=== PATIENT | female | born 1950 | race Caucasian/White ===

== ENCOUNTER 2023-08-27 13:09 | Emergency (ER) | payer MEDICARE, OTHER, SELFPAY ==
[2023-08-27 13:17] VITALS: BP 190/102
[2023-08-27 13:47] LABS: % Basophils 0.2 % (0-2); % Eosinophils 0.7 % (0-6); % Immature Granulocytes 0.2 % (0-0.5); % Lymphocytes 33.1 % (20.5-51.1); % Monocytes 8.6 % (1.7-9.3); % Neutrophils 57.2 % (42.2-75.2); Absolute Monocytes 0.5 10^3/uL (0.1-0.6); Absolute Neutrophils 3.4 10^3/uL (1.4-6.5); Hematocrit 42.1 % (37.0-47.0); Hemoglobin 14.2 g/dL (12.0-16.0); Mean Corp Hgb Conc. 33.7 g/dL (33.0-37.0); Mean Corpuscular Hgb 29.8 pg (27.0-31.0); Mean Corpuscular Volume 88.3 fL (81.0-99.0); Mean Platelet Volume 10.4 fL (7.4-10.4); Nucleated Red Blood Cells % 0 %; Platelet Count 231 10^3/uL (130-400); Red Blood Cell Count 4.77 10^6/uL (4.20-5.40); Red Cell Dist. Width 13.1 % (11.5-14.5)
[2023-08-27 14:00] LABS: ALT (SGPT) 16 U/L (0-35); AST (SGOT) 25 U/L (14-36); Albumin 4.6 g/dl (3.5-5.0); Alkaline Phosphatase 63 U/L (38-126); Blood Urea Nitrogen 14 mg/dl (7-17); Calcium 10.2 mg/dl (8.4-10.2); Carbon Dioxide 27 mmol/L (22-30); Chloride 105 mmol/L (98-107); Glucose 121 mg/dl (70-99); Potassium 3.7 mmol/L (3.5-5.1); Sodium 139 mmol/L (135-145); Total Bilirubin 0.8 mg/dl (0.2-1.3); Total Protein 7.1 g/dl (6.3-8.2); eGFR > 60.00
--- NOTE | 2023-08-27 16:35 | ED.GENMED ---
History of Present Illness
General
Chief Complaint: Visual Problem
Source: patient
Time Seen by Provider: 08/27/23 16:03
Nursing documentation reviewed up to this point in time: agreed with
Travel History
Have you had any contact with someone who has COVID-19?: No
Do you have any symptoms of coronavirus? Fever > 100 degrees, chills, cough, shortness of breath, sore throat, loss of taste or smell, muscle aches, or headache?: No
History of Present Illness
History of Present Illness:
Patient is a 73-year-old female with history of stroke in 2020 presents to the ER for evaluation. Last night around 4 PM she was looking up and taking off close when she developed what she describes as kaleidoscope vision and saw all of these
bright colors in both of her eyes and then finally only in her left eye. This lasted about 15 to 20 minutes and resolved on its own. She did have a mild headache. She denied any upper or lower extremity numbness tingling or weakness with episode.
Today she went to call ophthalmology and they recommended she come here to the ER. She is asymptomatic today.
Past History
Past History
ED Past Medical History: CVA and Other (MS in remission for 21 years.)
Social History
Tobacco: Non-smoker
Alcohol: None
Personal:
Living: with family
Review of Systems
Review of Systems
Allergies reviewed?: Yes
All Other Systems: ROS reviewed and negative except as documented in HPI and ROS
Constitutional: Reports no symptoms
EENT: Reports other (Had kaleidoscope vision in bilateral eyes yesterday 4 PM then went to left eye associated with headache and resolved within 15 to 20 minutes)
Respiratory: Reports no symptoms
Cardiac: Reports no symptoms
ABD/GI: Reports no symptoms; Denies abdominal pain, nausea or vomiting
Musculoskeletal: Reports no symptoms
Skin: Reports no symptoms
Neurological: Reports headache (Resolved yesterday)
Hematologic/Lymphatic: Reports no symptoms
Psychiatric: Reports no symptoms
Phy Exam
General Physical Exam
General Presentation: no apparent distress
General age: appears stated age
General Skin: warm and dry
General Habitus: normal
General Mental: alert
General Hydration: appears well hydrated
Eye Exam
Eye Exam: PERRL and EOMI
Eye Exam General: PERRL: bilateral and EOM intact: bilateral
Pupil Exam: Bilateral: round and reactive
Cardiovascular Exam
Cardiovascular Exam: regular rate/rhythm, no murmur and normal peripheral pulses
Pulmonary Exam
Pulmonary Exam: lungs clear and no respiratory distress
Neurological Exam
Neurological Exam: alert, oriented x3, no motor deficits and no sensory deficits
NIH Stroke Score
Level of Consciousness: 0 - Alert
LOC questions: 0-Answers both correctly
LOC Commands: 0-Performs both correctly
Best Gaze: 0-Normal
Visual Young: 0=Normal, no visual loss
Facial palsy: 0=Normal, symmetrical
Motor - Right Arm: 0=No drift 10 seconds
Motor - Left Arm: 0=No drift 10 seconds
Motor - Right Le-No drift 5 seconds
Motor - Left Le-No drift 5 seconds
Limb Ataxia: 0-Absent
Sensation: 0-Normal
Best Language: 0-No aphasia
Dysarthria: 0-Normal
Extinction and Inattention: 0-No abnormality
Total Score:: 0
Ratna Coma Scale
Eye Opening: Spontaneous
Verbal Response: Oriented
Motor Response: Obeys Commands
GCS Total Score: 15
Cerebellar
Cerebellar Function: normal finger to nose
Musculoskeletal Exam
Musculoskeletal Exam: full ROM
Skin Exam
Skin Exam: normal color and warm/dry
Psychiatric Exam
Psychiatric Exam: normal mood/affect
Course
Orders/Labs/Results
Orders:
Orders
08/27/23 13:36
CMP [Comprehensive Metabolic Panel] Urgent
Complete Blood Count/With Diff Urgent
08/27/23 17:05
CT Head W/o Iv Contrast Urgent
Comment:
Reason For Exam: visual changes
Abnormal Lab Results
08/27/23
13:36
Glucose 121 H mg/dl
(70-99)
08/27/23 13:36
08/27/23 13:36
Vital Signs
Initial and Last Documented VS:
Initial Vital Signs
Temp Pulse Resp BP Pulse Ox
98.0 F 88 18 190/102 98
08/27/23 13:17 08/27/23 13:17 08/27/23 13:17 08/27/23 13:17 08/27/23 13:17
Last Documented Vital Signs
Temp Pulse Resp BP Pulse Ox
98.0 F 56 18 159/84 99
08/27/23 13:17 08/27/23 18:31 08/27/23 18:31 08/27/23 18:31 08/27/23 18:31
Industrial Psychology Teacher consulted with Physician
Industrial Psychology Teacher consulted with physician?: Yes
Name of Physician Consulted: Naheed
MDM/Problems Addressed
MDM/Problems Addressed:
Patient is a 73-year-old female who presented with an episode of kaleidoscope vision last night with both eyes and then went to 1 eye. It lasted 1520 mention a mild headache with it and symptoms resolved. She has been asymptomatic today but wanted
to follow-up with ophthalmology and they recommended she come here. She is completely asymptomatic today no headache no visual disturbance no complaints of upper or lower extremity numbness Yunior weakness. She is been asymptomatic with a normal
neurologic exam. Case reviewed with neurology does feel this is a migraine. CAT scan done and negative. Patient remained asymptomatic will DC home.
Chronic conditions affecting care:
previous cva
*Radiology
Radiology exam reviewed: radiology read reviewed
*Pulse Oximetry
Patient hypoxic: no
*Critical Care Note
Total Time (30-74mins, 75-104mins- exclusive of procedures): Not Applicable
Patient Management
Discussion with other providers: Lace Roller Operator (neuro DR Martinez )
ED Attending Note
-
Portions of this chart may have been created with voice recognition software.� Occasional wrong word or��sound alike� substitutions may have occurred due to the inherent limitations of voice recognition software.
Discharge Plan
Departure
Patient Disposition: Home (Routine Discharge)
Date of Disposition: 08/27/23
Time of Disposition: 20:52
Patient with high blood pressure during this ER visit?: Yes
Covid-19: Not Applicable
Discharge Problem:
Migraine
Instructions: Migraines (DC), Headache, Adult (DC), BLOOD PRESSURE
Prescriptions:
No Action
atorvastatin 40 MG tablet
40 mg PO QPM Qty: 90 0RF
acetaminophen 325 MG tablet
650 mg PO Q4HPRN PRN (Reason: moderate or severe pain) 0RF
acetaminophen 325 MG tablet
325 mg PO Q4HPRN PRN (Reason: mild pain) 0RF
cyanocobalamin (vitamin B-12) 1,000 MCG tablet
2,500 mcg PO DAILY 0RF
clopidogrel 75 MG tablet
75 mg PO DAILY Qty: 90 0RF
pantoprazole 40 MG tablet,delayed release (DR/EC)
40 mg PO DAILY Qty: 90 0RF
cholecalciferol (vitamin D3) 1,000 UNITS tablet
1,000 units PO DAILY 0RF
Lactobac 2-Bifido 1-S. therm [High Potency Probiotic] 1 CAP capsule
1 cap PO DAILY 0RF
vitamin E (dl, acetate) 400 UNITS capsule
400 units PO DAILY 0RF
multivitamin with folic acid [Tab-A-Maryellen] 1 TABLET tablet
1 tab PO DAILY 0RF
Referrals:
Shaan Martinez MD [Active] -
Clay Salinas [Family Provider] -
Activity Restrictions/Additional Instructions:
Follow-up with family doctor in the several days and neurology if needed. Return if any worsening of symptoms
Interventions
Interventions:
*Risk Screen - Suicide Last Done: 08/27/23 18:32
*General Assessment Last Done: 08/27/23 18:32
*Neglect/Abuse Screening Last Done: 08/27/23 18:32
ED- Fall Risk Assessment Last Done: 08/27/23 17:18
*ED COVID-19 Vaccine History Last Done: 08/27/23 13:17
ED- Neurological Assessment Last Done: 08/27/23 17:18
ED-EENT Assessment Last Done: 08/27/23 18:32
ED Swallowing Screen Last Done: 08/27/23 18:31
Discharge Date and Time
Print Language: GREEK
[2023-08-27 17:18] VITALS: BP 182/93
[2023-08-27 18:31] VITALS: BP 159/84
[2023-08-27 21:23] VITALS: BP 161/85
== END 2023-08-27 21:23 | disposition home or self-care (01) ==
LOC: EMR 13:09
PROVIDERS: Emergency Medicine; EMERGENCY PHYSICIAN Emergency Medicine; FAMILY PHYSICIAN Family Medicine
DX: G43.909 Migraine, unspecified, not intractable, without status migrainosus (principal); R03.0 Elevated blood-pressure reading, without diagnosis of hypertension; Z86.73 Personal history of transient ischemic attack (TIA), and cerebral infarction without residual deficits
CPT/HCPCS: 99284; 70450; 80053; 85025

== ENCOUNTER → 2023-12-31 12:11 | Outpatient (REF) | payer MEDICARE, OTHER, SELFPAY | LOC: HWRAD 12:11 | PROVIDERS: ATTENDING PHYSICIAN Family Medicine | DX: Z78.0 Asymptomatic menopausal state (principal); Z12.39 Encounter for other screening for malignant neoplasm of breast; M85.80 Other specified disorders of bone density and structure, unspecified site | CPT/HCPCS: 77063; 77067; 77080 ==

== ENCOUNTER → 2024-12-06 09:31 | Outpatient (REF) | payer MEDICARE, OTHER, SELFPAY | LOC: HWRAD 09:31 | PROVIDERS: ATTENDING PHYSICIAN Family Medicine | DX: M51.26 Other intervertebral disc displacement, lumbar region (principal) | CPT/HCPCS: 72131; 72192 ==

== ENCOUNTER 2025-01-29 12:09 | Inpatient (IN) | payer MEDICARE, OTHER, SELFPAY ==
[2025-01-29] VITALS (30 sets, daily range): BP systolic 100–200; BP diastolic 47–124; BMI 26.4
[2025-01-29 04:47] LABS: Hematocrit 40.9 % (37.0-47.0); Hemoglobin 13.8 g/dL (12.0-16.0); Mean Corp Hgb Conc. 33.7 g/dL (33.0-37.0); Mean Corpuscular Volume 86.3 fL (81.0-99.0); Nucleated Red Blood Cells % 0 %; Platelet Count 239 10^3/uL (130-400); Red Cell Dist. Width 13.2 % (11.5-14.5)
[2025-01-29 05:08] LABS: ALT (SGPT) 23 U/L (0-35); AST (SGOT) 26 U/L (14-36); Albumin 4.4 g/dl (3.5-5.0); Alkaline Phosphatase 68 U/L (38-126); Blood Urea Nitrogen 14 mg/dl (7-17); Calcium 9.6 mg/dl (8.4-10.2); Carbon Dioxide 31 mmol/L (22-30); Chloride 108 mmol/L (98-107); Glucose 108 mg/dl (70-99); Potassium 3.5 mmol/L (3.5-5.1); Sodium 142 mmol/L (135-145); Total Protein 7.0 g/dl (6.3-8.2); eGFR > 60.00
--- NOTE | 2025-01-29 07:55 | ED.GENMED ---
History of Present Illness
<Hasmukh Mayorga PA-C - Last Filed: 01/29/25 11:08>
General
Chief Complaint: Numbness
Source: patient
Time Seen by Provider: 01/29/25 07:34
History of Present Illness
History of Present Illness:
75-year-old female with past medical history of previous CVA in 2020, a reported history of MS in the past however she notes that on subsequent MRIs her MS lesions has since resolved presenting to the emergency department for evaluation of full
left-sided body numbness including the face, left upper extremity and left lower extremity since 10 PM last night, patient thought that this may have been related to the chronic paresthesias she feels in the lower part of her abdomen so just decided
to go to sleep, woke up at 1 AM needing to go to the bathroom and upon getting up felt as if she were stumbling/not able to walk normally because of the left lower extremity paresthesia which she states is very abnormal for her and why they decided
to come to the emerged permit. Patient states that she still has the full left-sided paresthesia. No other symptoms associated including headache, chest pain or shortness of breath, fevers or infectious symptoms, neck pain or stiffness or any
other concerns. Patient does not take any antiplatelet or anticoagulant medications.
Past History
<Hasmukh Mayorga PA-C - Last Filed: 01/29/25 11:08>
Past History
ED Past Medical History: CVA and Other (MS in remission for 21 years.)
ED Past Surgical History: Gynecological, Orthopedic and Tonsilectomy
Social History
Tobacco: Non-smoker
Alcohol: None
Drug: None
Personal:
Living: with family
Review of Systems
<Hasmukh Mayorga PA-C - Last Filed: 01/29/25 11:08>
Review of Systems
All Other Systems: ROS reviewed and negative except as documented in HPI and ROS
Phy Exam
<Hasmukh Mayorga PA-C - Last Filed: 01/29/25 11:08>
Physical Exam
Physical Exam:
GENERAL: Alert , in no apparent distress
HEAD: Normocephalic atraumatic
EYE: pupils equal and reactive, EOMI, PERRL
NECK: Supple
ENT: o/p clr, mmm.
CARDIAC: Regular rate and rhythm, no murmur .
LUNGS: Clear breath sounds bilaterally, no acute respiratory distress, no wheezes/rales/rhonchi
ABDOMEN: Soft, without focal tenderness, no r/g, no cvat
NEUROLOGICAL: Alert and oriented, HUNT x 4, no ataxia, no dysarthria/aphasia, subjective sensory deficits to LUE/LLE but has FROM with no drift
SKIN: Warm and dry, skin intact.
MUSCULOSKELETAL: well perfused.
PSYCH: Normal and appropriate interaction.
Scores
<Hasmukh Mayorga PA-C - Last Filed: 01/29/25 11:08>
NIH Stroke Score
Level of Consciousness: 0 - Alert
LOC Questions: 0-Answers both correctly
LOC Commands: 0-Performs both correctly
Best Horizontal Gaze: 0-Normal
Visual Young: 0=Normal, no visual loss
Facial Palsy: 0=Normal, symmetrical
Motor - Right Arm: 0=No drift 10 seconds
Motor - Left Arm: 0=No drift 10 seconds
Motor - Right Le-No drift 5 seconds
Motor - Left Le-No drift 5 seconds
Limb Ataxia: 0-Absent
Sensation: 1-Mild loss
Best Language: 0-No aphasia
Dysarthria: 0-Normal
Extinction and Inattention: 0-No abnormality
NIH Total Score:: 1
[id number] Score for Afib Stroke Risk
Age in Years (65=0, 65-74=1, >/=75=2): 65-74
Sex (Female=+1): Female
Congestive Heart Failure History (Yes=+1): No
Hypertension History (Yes=+1): No
Stroke/TIA/Thromboembolism History (Yes=+2): Yes
Vascular Disease History (Yes=+1): No
Diabetes Mellitus (Yes=+1): No
Score: 4
Anticoagulation Recommendations: Recommend anticoagulation (as validated in nonvalvular fib)
<Uzair Thompson DO - Last Filed: 01/29/25 08:38>
NIH Stroke Score
NIH Total Score:: 1
[id number] Score for Afib Stroke Risk
Score: 4
Anticoagulation Recommendations: Recommend anticoagulation (as validated in nonvalvular fib)
Course
<Hasmukh Mayorga PA-C - Last Filed: 01/29/25 11:08>
Orders/Labs/Results
Orders:
Orders
01/29/25 04:21
EKG [Electrocardiogram (*1)] Urgent
Reason for Study: Fatigue / Weakness
Other Reason for Exam: left arm numbness.
01/29/25 04:23
EKG- Treatment ONCE
01/29/25 04:35
CMP [Comprehensive Metabolic Panel] Urgent
Complete Blood Count/With Diff Urgent
01/29/25 07:48
CT Head & Neck Angio W/wo IV Urgent
Comment:
Reason For Exam: left sided numbness, hx CVA
01/29/25 07:49
CT Head W/o Iv Contrast Urgent
Comment:
Reason For Exam: left sided numbness, hx CVA
01/29/25 07:57
Aspirin 325 mg PO NOW STA
Clopidogrel Bisulfate [Plavix] 300 mg PO NOW STA
01/29/25 08:04
Diphenhydramine [Benadryl] 50 mg IV NOW STA
Hydrocortisone Sod Succinate [Solu-Cortef] 100 mg IV NOW STA
01/29/25 08:15
Electrocardiogram (*1) Urgent
Reason for Study: Atrial Fibrillation
EKG- Treatment ONCE
01/29/25 08:18
Diltiazem HCl [Cardizem] 10 mg IV NOW STA
01/29/25 08:30
Diltiazem 125 mg/125 ml Nss [Cardizem] 125 mg in 125 ml IV PER PROTOCOL
Initial dose in mg/hr, then titrate:: 5
Titrate to keep:: Heart rate 80-100 bpm
Titrate by mg/hr:: 5 mg/hr
Frequency of titrations (minutes):: 15
Maximum dose in mg/hr:: 15
01/29/25 08:50
Electrocardiogram (*1) Urgent
Reason for Study: Abnormal EKG
01/29/25 08:51
EKG- Treatment ONCE
01/29/25 09:11
MR Brain Without Contrast Routine
Comment:
Reason For Exam: stroke
OK for patient to be off Cardiac Monitoring for MRI: No
Recent pill cam endoscopy?: No
Abnormal Lab Results
01/29/25
04:35
MPV 10.5 H fL
(7.4-10.4)
Chloride 108 H mmol/L
(98-107)
Carbon Dioxide 31 H mmol/L
(22-30)
Glucose 108 H mg/dl
(70-99)
01/29/25 04:35
01/29/25 04:35
Vital Signs
Initial and Last Documented VS:
Initial Vital Signs
Temp Pulse Resp BP Pulse Ox
97.7 F 80 20 200/100 99
01/29/25 02:23 01/29/25 02:23 01/29/25 02:23 01/29/25 02:23 01/29/25 02:23
Last Documented Vital Signs
Temp Pulse Resp BP Pulse Ox
97.7 F 61 15 135/71 98
01/29/25 02:29 01/29/25 10:45 01/29/25 10:45 01/29/25 10:38 01/29/25 10:45
<Uzair Thompson, DO - Last Filed: 01/29/25 08:38>
Orders/Labs/Results
Orders:
Orders
01/29/25 04:21
EKG [Electrocardiogram (*1)] Urgent
Reason for Study: Fatigue / Weakness
Other Reason for Exam: left arm numbness.
01/29/25 04:23
EKG- Treatment ONCE
01/29/25 04:35
CMP [Comprehensive Metabolic Panel] Urgent
Complete Blood Count/With Diff Urgent
01/29/25 07:48
CT Head & Neck Angio W/wo IV Urgent
Comment:
Reason For Exam: left sided numbness, hx CVA
01/29/25 07:49
CT Head W/o Iv Contrast Urgent
Comment:
Reason For Exam: left sided numbness, hx CVA
01/29/25 07:57
Aspirin 325 mg PO NOW STA
Clopidogrel Bisulfate [Plavix] 300 mg PO NOW STA
01/29/25 08:04
Diphenhydramine [Benadryl] 50 mg IV NOW STA
Hydrocortisone Sod Succinate [Solu-Cortef] 100 mg IV NOW STA
01/29/25 08:15
Electrocardiogram (*1) Urgent
Reason for Study: Atrial Fibrillation
EKG- Treatment ONCE
01/29/25 08:18
Diltiazem HCl [Cardizem] 10 mg IV NOW STA
01/29/25 08:30
Diltiazem 125 mg/125 ml Nss [Cardizem] 125 mg in 125 ml IV PER PROTOCOL
Initial dose in mg/hr, then titrate:: 5
Titrate to keep:: Heart rate 80-100 bpm
Titrate by mg/hr:: 5 mg/hr
Frequency of titrations (minutes):: 15
Maximum dose in mg/hr:: 15
01/29/25 08:50
Electrocardiogram (*1) Urgent
Reason for Study: Abnormal EKG
01/29/25 08:51
EKG- Treatment ONCE
01/29/25 09:11
MR Brain Without Contrast Routine
Comment:
Reason For Exam: stroke
OK for patient to be off Cardiac Monitoring for MRI: No
Recent pill cam endoscopy?: No
Abnormal Lab Results
01/29/25
04:35
MPV 10.5 H fL
(7.4-10.4)
Chloride 108 H mmol/L
(98-107)
Carbon Dioxide 31 H mmol/L
(22-30)
Glucose 108 H mg/dl
(70-99)
01/29/25 04:35
01/29/25 04:35
Vital Signs
Initial and Last Documented VS:
Initial Vital Signs
Temp Pulse Resp BP Pulse Ox
97.7 F 80 20 200/100 99
01/29/25 02:23 01/29/25 02:23 01/29/25 02:23 01/29/25 02:23 01/29/25 02:23
Last Documented Vital Signs
Temp Pulse Resp BP Pulse Ox
97.7 F 61 15 135/71 98
01/29/25 02:29 01/29/25 10:45 01/29/25 10:45 01/29/25 10:38 01/29/25 10:45
<Hasmukh Mayorga PA-C - Last Filed: 01/29/25 11:08>
MDM/Problems Addressed
Differential Diagnosis Includes:
CVA/TIA
ICH
Malignancy
MS
Electrolyte imbalance
Lyme/tick borne illness
HTN
MDM/Problems Addressed:
75-year-old female presenting to the emergency department for evaluation
<Hasmukh Mayorga PA-C - Last Filed: 01/29/25 11:08>
*Radiology
Radiology exam reviewed: radiology read reviewed
*Pulse Oximetry
SaO2: 99
Oxygen Mode of Delivery: Room air
Patient hypoxic: no
*EKG
Heart Rate: 171
Rate: tachycardiac
Rhythm: a-fib
Ryde: normal axis
Ischemia: ST depression (Inferior leads and V3 through V6)
*Deck Builder Interpretation
Rate: tachycardiac
Heart Rate: 149
Rhythm: a-fib
*Critical Care Note
Total Time (30-74mins, 75-104mins- exclusive of procedures): 35
comment:
Critical care statement: A total of 35 minutes of critical care time was provided for this patient. This includes management of unstable vital signs, evaluation of the patient at bedside, reviewing the patient's pertinent medical records, discussion
with consultants, review of old EKGs and review of pertinent medical records. This time with separate from time utilized to perform the aforementioned documented procedures
<Hasmukh Mayorga PA-C - Last Filed: 01/29/25 11:08>
Comment
Comment:
The patient had noted to the CT team that she had a history of allergic reaction to IV contrast dye, I went to go speak with the patient about this reaction and patient states it is not a reaction but that she gets a flushed sensation, explained
that this is a normal sensation to feel when getting IV dye. Patient denies any history of rash or anaphylactic reaction with the IV contrast dye.
While returning from CT scan it was noted on patient's telemetry that she appears to be in a new onset atrial fibrillation with rates as high as 180 bpm. Degree of suspicion is much more increased for CVA. Ordered Cardizem bolus and drip for rate
control. Will
Patient Management
Discussion with other providers: Hospitalist and Sign Writer Hand
Escalation/DeEscalation of care consider admission/obs:
Discussed case initially with neurology due to concern for possible CVA. They agree with workup plan for CT of the head as well as CTA of the head and neck. I did not call a stroke alert given patient's low NIH score, unlikely for IAT as well as
not a TNK candidate but we did bring patient over to CT scan stat for study to be done. Upon returning from CT scan patient was noted to be in a rapid A-fib. Cardizem bolus and drip ordered. Neurology updated on these findings. Hospitalist team
to admit.
ED Attending Note
<Hasmukh Mayorga PA-C - Last Filed: 01/29/25 11:08>
-
Portions of this chart may have been created with voice recognition software.� Occasional wrong word or��sound alike� substitutions may have occurred due to the inherent limitations of voice recognition software.
<Uzair Thompson DO - Last Filed: 01/29/25 08:38>
ED Attending Note
Patient seen and examined by attending physician: Yes
I performed the substantive portion of visit, reviewed & personally made and approve the management plan that is documented in note by myself or AMELIA.: Yes
ED Attending Note:
I have seen and evaluated the patient with a [id number] encounter. I have spoken to the advance practicer provider and involved in the medical history, the physical exam, medical decision making.
Evaluation and management service: agree unless noted differently below.
Results interpretation: agree unless noted differently below.
Focused HPI: 75-year-old female presenting to the emergency department with strokelike symptoms. She developed numbness and tingling to both left arm and leg. She has had a lingering paresthesias to her left arm which she equates to her MS.
Physical exam: Sitting bed comfortably. Sensation grossly intact
Medical Decision Making: After CT was obtained, patient went into A-fib with RVR. We did discuss the correlation between A-fib and symptoms. Will try to rate control. Neurology involved. Will ultimately admit
Discharge Plan
Departure
Patient Disposition: Admit
Date of Disposition: 01/29/25
Time of Disposition: 08:23
Presentation/result/management discussed w/ accepting MD/DO: Hospitalist
Discharge Problem:
Acute CVA (cerebrovascular accident), New onset a-fib
Prescriptions:
No Action
atorvastatin 40 MG tablet
40 mg PO QPM Qty: 90 0RF
acetaminophen 325 MG tablet
650 mg PO Q4HPRN PRN (Reason: moderate or severe pain) 0RF
acetaminophen 325 MG tablet
325 mg PO Q4HPRN PRN (Reason: mild pain) 0RF
cyanocobalamin (vitamin B-12) 1,000 MCG tablet
2,500 mcg PO DAILY 0RF
clopidogrel 75 MG tablet
75 mg PO DAILY Qty: 90 0RF
pantoprazole 40 MG tablet,delayed release (DR/EC)
40 mg PO DAILY Qty: 90 0RF
cholecalciferol (vitamin D3) 1,000 UNITS tablet
1,000 units PO DAILY 0RF
Lactobac 2-Bifido 1-S. therm [High Potency Probiotic] 1 CAP capsule
1 cap PO DAILY 0RF
vitamin E (dl, acetate) 400 UNITS capsule
400 units PO DAILY 0RF
multivitamin with folic acid [Tab-A-Maryellen] 1 TABLET tablet
1 tab PO DAILY 0RF
Referrals:
Clay Salinas DO [Family Provider, Family Practice]
Interventions
Interventions:
*Risk Screen - Suicide Last Done: 01/29/25 02:23
*General Assessment Last Done: 01/29/25 02:23
*Neglect/Abuse Screening Last Done: 01/29/25 02:23
*ED COVID-19 Vaccine History Last Done: 01/29/25 02:23
*ED Influenza Vaccine History Last Done: 01/29/25 02:23
ED- Neurological Assessment Last Done: 01/29/25 08:40
Discharge Date and Time
Print Language: SAUDI ARABIAN
[2025-01-29] MEDS: CARDIZEM 10 MG IV (08:26)
[2025-01-29] MEDS: CARDIZEM 125 IV (08:27)
[2025-01-29] MEDS: PLAVIX 300 MG PO (08:37)
[2025-01-29] MEDS: ASPIRIN 325 MG PO (08:37)
--- NOTE | 2025-01-29 08:54 | CON.NEURO ---
Consultation
Order
Date of Consultation: 01/29/25
Reason for Consult: Stroke
Neurology Consultation Note.
HPI: This is a 75-year-old right-handed woman who presented to [facility] on 01/29/2025 with left-sided motor and sensory deficits.
The patient reports that yesterday around 10 PM, numbness was 'creeping up' her back, and her left arm and hand became completely numb. She went to sleep around 11 PM feeling tired and numb but attributed this to possibly sleeping wrong or a pinched
nerve. She woke up around 1:15 AM to use the bathroom and found that her left leg 'felt like wood' - hard, numb, and heavy. The numbness extended down to her left foot, which felt 'really thick.' She also developed left facial numbness, describing
her left cheek as feeling like she 'had novocaine' that extended 'up into my head.'
No reports of headaches, change in vision abnormal movements.
Based on EMR patient has a history of stroke with residual left-sided deficits in 2020. She has been on aspirin and Plavix therapy since.
ER VS: 200/100, 80�179, afebrile.
Telemetry�A-fib with RVR
PDMP:
Labs: Glucose�108.
Platelet React - P2Y12 React Units 112 (effective)
CT head wo contrast-Stable old right parietal lobe periventricular infarct.
CTA head/neck�no LVO
PMH: Stroke (2020), HTN, DLP, vitamin D deficiency, osteoporosis
PSH: Reduction mammoplasty, bilateral cataract surgery, right LASIK(01/26/2025), R TKA, tonsillectomy, ovarian cystectomy
SH: , non-smoker, works as a real estate administrative assistant, independent in ADLs.
FH: Mother�A-fib
All: COVID-vaccine, erythromycin, iodine, procaine
ROS: Cardiovascular: Negative for chest pain, palpitations.
Genitourinary: Negative for urinary difficulties.
Neurological: Negative for headache, neck pain.
General: Well developed. In no acute distress.
Cardio: Regular rate and rhythm without murmur. Extremities are without cyanosis or edema.
Neuro:
Mental Status: Alert, oriented to person, place, and date. Mildly impaired attention good fund of knowledge. Follows complex requests across the midline. Comprehension, naming, and repetition intact.
Cranial Nerves: Pupils are equally round and reactive to light. EOMs full. Visual marcial full to confrontation. No ptosis. No nystagmus. V1-V3 intact to light touch and pinprick bilaterally, symmetric. Face symmetric. Normal hearing AU. The
palate elevated well. SCMs and traps 5/5. Tongue midline. No dysarthria.
Motor: Normal bulk and tone. No pronator or arm drift. Strength 5/5 throughout. No clonus.
Reflexes: 3+ throughout the upper extremities and 3+knees. Plantar responses flexor bilaterally.
Sensory: Reduced vibration at the left toe, ankle and right toe and ankle
Coordination: No dysmetria or tremor.
Gait: deferred
Assessment and Plan:
I. 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
II. A-fib with RVR
III. Hypertensive emergency
-Continue Telemetry monitoring
-Aspiration precautions
-Cautious lowering of BP by approximately 15 % during the first 24 hours is SBP >220 mmHg or diastolic blood pressure >120 mmHg
-Restart antihypertensive medications if BP>140/90 mmHg and neurologically stable in 24 to 48 hours after stroke onset
-Continue aspirin 81 mg once a day and Plavix 75 mg once a day
-Brain MRI without vangie
-Cardiology consult
-DVT prophylaxis.
I personally reviewed all radiology and labs along with past medical records pertinent to current medical problems. Total time spent in patient care is 60 minutes.
Thank you for allowing us to participate in the care of this patient. We will continue to follow. Please do not hesitate to contact us with any questions or concerns.
Subjective/Objective
Subjective Data
Date of Service: January 29, 2025
Objective Data
Vital Signs
Temp Pulse Resp BP Pulse Ox
36.5 C 122 15 117/68 100
01/29/25 02:29 01/29/25 08:30 01/29/25 08:30 01/29/25 08:30 01/29/25 08:30
Lab Results
01/29/25 04:35
01/29/25 04:35
Sodium 142 mmol/L (135-145) 01/29/25 04:35
Potassium 3.5 mmol/L (3.5-5.1) 01/29/25 04:35
BUN 14 mg/dl (7-17) 01/29/25 04:35
Glucose 108 mg/dl (70-99) H 01/29/25 04:35
Calcium 9.6 mg/dl (8.4-10.2) 01/29/25 04:35
Patient Allergies
COVID-19 vaccine, AZD-1222 (AstraZ Allergy (Verified 08/27/23 13:21)
Unknown
erythromycin base Allergy (Verified 08/27/23 13:21)
Rash
Iodinated Contrast Media Allergy (Verified 08/27/23 13:21)
Rash
procaine (From Novocain) Allergy (Verified 08/27/23 13:21)
tachycardia
Medications
-
Active Medications
Generic Name Dose Route Start Last Admin
Trade Name Freq PRN Reason Stop Dose Admin
Diltiazem HCl 125 mg in 125 mls @ 0 mls/hr 01/29/25 08:30 01/29/25 08:27
Cardizem IV 125 mls
PER PROTOCOL NARCISA Administration
Protocol
Per Protocol
Home Medications
�Medication �Instructions �Recorded
Lactobac no.2-Bifidobac no.1-S. 1 cap PO DAILY 08/09/20
thermo 112.5 billion cell capsule
(High Potency Probiotic)
acetaminophen 325 mg tablet 325 mg PO Q4HPRN PRN mild pain 08/09/20
acetaminophen 325 mg tablet 650 mg (2 x 325 mg) PO Q4HPRN PRN 08/09/20
moderate or severe pain
atorvastatin 40 mg tablet 40 mg PO QPM #90 tabs 08/09/20
cholecalciferol (vitamin D3) 25 1,000 units PO DAILY 08/09/20
mcg (1,000 unit) tablet
clopidogrel 75 mg tablet 75 mg PO DAILY #90 tabs 08/09/20
cyanocobalamin (vitamin B-12) 2,500 mcg (2.5 x 1,000 mcg) PO 08/09/20
1,000 mcg tablet DAILY
multivitamin with folic acid 400 1 tab PO DAILY 08/09/20
mcg tablet (Tab-A-Maryellen)
pantoprazole 40 mg tablet,delayed 40 mg PO DAILY #90 tabs 08/09/20
release
vitamin E (dl, acetate) 180 mg 400 units PO DAILY 08/09/20
(400 unit) capsule
Vital Signs and Labs
-
Vital Signs and Labs:
Vital Signs
Temp Pulse Resp BP Pulse Ox
36.5 C 122 15 117/68 100
01/29/25 02:29 01/29/25 08:30 01/29/25 08:30 01/29/25 08:30 01/29/25 08:30
Lab Results
01/29/25 04:35
01/29/25 04:35
Sodium 142 mmol/L (135-145) 01/29/25 04:35
Potassium 3.5 mmol/L (3.5-5.1) 01/29/25 04:35
BUN 14 mg/dl (7-17) 01/29/25 04:35
Glucose 108 mg/dl (70-99) H 01/29/25 04:35
Calcium 9.6 mg/dl (8.4-10.2) 01/29/25 04:35
Medications
-
Medications:
Generic Name Dose Route Start Last Admin
Trade Name Freq PRN Reason Stop Dose Admin
Diltiazem HCl 125 mg in 125 mls @ 0 mls/hr 01/29/25 08:30 01/29/25 08:27
Cardizem IV 125 mls
PER PROTOCOL NARCISA Administration
Protocol
Per Protocol
Home Medications
-
Home Medications
Lactobac no.2-Bifidobac no.1-S. thermo 112.5 billion cell capsule (High Potency Probiotic) 1 cap PO DAILY 08/09/20
acetaminophen 325 mg tablet 325 mg PO Q4HPRN PRN mild pain 08/09/20
acetaminophen 325 mg tablet 650 mg (2 x 325 mg) PO Q4HPRN PRN moderate or severe pain 08/09/20
atorvastatin 40 mg tablet 40 mg PO QPM #90 tabs 08/09/20
cholecalciferol (vitamin D3) 25 mcg (1,000 unit) tablet 1,000 units PO DAILY 08/09/20
clopidogrel 75 mg tablet 75 mg PO DAILY #90 tabs 08/09/20
cyanocobalamin (vitamin B-12) 1,000 mcg tablet 2,500 mcg (2.5 x 1,000 mcg) PO DAILY 08/09/20
multivitamin with folic acid 400 mcg tablet (Tab-A-Maryellen) 1 tab PO DAILY 08/09/20
pantoprazole 40 mg tablet,delayed release 40 mg PO DAILY #90 tabs 08/09/20
vitamin E (dl, acetate) 180 mg (400 unit) capsule 400 units PO DAILY 08/09/20
--- NOTE | 2025-01-29 12:49 | CON.CAR ---
Consultation
Consultation Request
Date/Time Consultation Requested: 01/29/2025 1145
Date/Time Consultation Performed: 01/29/2025 1245
Requesting Provider: Char
Performing Provider: Eleonora
Reason for Consultation: AF, CVA
Medical History
-
Chief Complaint: Weakness, numbness
History of Present Illness:
Patient is a pleasant 74-year-old female with a past medical history significant for prior CVA 2020, reported history of MS, DJD who presents due to worsening left-sided numbness and weakness concern for CVA. Patient evaluated by neurology concern
for right thalamic syndrome versus recrudescence of chronic deficits. In emergency department, patient noted to have AF RVR with symptoms associated with AF including palpitations, shortness of breath, lightheadedness. Additionally, patient noted
to be in hypertensive emergency likely contributing to other symptoms. In discussion with her, symptoms have subsequently resolved following hindu of sinus rhythm. Regarding the numbness, weakness, this remains present. Overall, she denies
any chest pain, shortness of breath, palpitations, near-syncope syncope, PND, orthopnea, edema. She reports that she and her are active going for walks without reported chest discomfort. Patient has no prior history of AF. She does report
several years ago undergoing dental procedure requiring epinephrine which left her feeling palpitations similar to what she experienced today. Patient undergoing evaluation and testing for CVA. Patient placed on diltiazem and noted to have
hindu of sinus rhythm spontaneously. Patient on aspirin, Plavix as outpatient. Patient is a non-smoker, no alcohol, no illicits. Patient has positive family history of heart disease.
Past Medical History
Past Medical History: Other (See HPI)
Past Surgical History: Other (Orthopedic, dental)
Social History
Tobacco: Non-Smoker
Alcohol: None
Drug: None
Personal:
Living: With Family
Employment: Retired
Family History
Family History: CAD and Hypertension
Allergies / Home Medications
Allergy/AdvReac Type Severity Reaction Status Date / Time
COVID-19 vaccine, AZD-1222 Allergy Unknown Verified 08/27/23 13:21
(AstraZ
erythromycin base Allergy Rash Verified 08/27/23 13:21
Iodinated Contrast Media Allergy Rash Verified 08/27/23 13:21
procaine (From Novocain) Allergy tachycardia Verified 08/27/23 13:21
�Medication �Instructions �Recorded �Confirmed �Type
Beet Root Capsules 1 cap PO DAILY 01/29/25 01/29/25 History
Daily Greens Capsule 1 cap PO DAILY 01/29/25 01/29/25 History
Lactobac no.2-Bifidobac no.1-S. 1 cap PO DAILY 01/29/25 01/29/25 History
thermo 112.5 billion cell capsule
(Visbiome)
ascorbic acid (vitamin C) 500 mg 500 mg PO DAILY 01/29/25 01/29/25 History
tablet (Vitamin C)
calcium carbonate 500 mg PO DAILY 01/29/25 01/29/25 History
cholecalciferol (vitamin D3) 25 25 mcg PO BID 01/29/25 01/29/25 History
mcg (1,000 unit) tablet (Vitamin
D3)
coQ10 (ubiquinol) 100 mg capsule 100 mg PO DAILY 01/29/25 01/29/25 History
garlic extract 400 mg tablet 400 mg PO DAILY 01/29/25 01/29/25 History
cait root-herbal drugs 450 mg 450 cap PO DAILY 01/29/25 01/29/25 History
capsule
ginkgo biloba 40 mg tablet 40 mg PO DAILY 01/29/25 01/29/25 History
magnesium oxide 200 mg PO BID 01/29/25 01/29/25 History
turmeric 400 mg capsule 400 mg PO DAILY 01/29/25 01/29/25 History
Physical Exam
Vital Signs
Temp Pulse Resp BP Pulse Ox
97.7 F 61 15 135/71 98
01/29/25 02:29 01/29/25 10:45 01/29/25 10:45 01/29/25 10:38 01/29/25 10:45
Lab Results
01/29/25 04:35
01/29/25 04:35
Physical exam:
GENERAL: no acute distress
EYE: sclera anicteric
NECK: Supple, no JVD, no carotid bruit appreciated
ENT: normal nose, moist mucosal membranes
CARDIAC: Regular rate and rhythm, +S1/S2, no murmur, rubs, or gallops
CHEST/PULMONARY: Normal effort, clear breath sounds
ABDOMEN: Soft, without focal tenderness or distention
NEUROLOGICAL: Alert and oriented x3
SKIN: Warm and dry, no rash
PSYCH: Normal and appropriate interaction.
Telemetry shows sinus rhythm with AF RVR and subsequent return to sinus rhythm
Impression / Plan
-
PCP: Dr. Clay Salinas
Supervisor Product Inspection: Dr Gary Friend ([facility])
Impression:
Neurologic change concern for right thalamic syndrome versus recrudescence of chronic deficits
� Followed by neurology currently undergoing evaluation and testing with imaging
CVA, chronic, 2020
Atrial fibrillation, paroxysmal, symptomatic
� Noted symptoms including palpitations, shortness of breath, lightheadedness
� [id number]: 4 (age, stroke, gender). Not currently on anticoagulation
� Rate controlled acutely with diltiazem gtt.
� Has spontaneous return to sinus rhythm
Multiple sclerosis, chronic
Osteoarthritis
Recommendations:
� Patient currently on dual antiplatelet therapy due to prior CVA and current symptoms; in the setting of new onset atrial fibrillation, would recommend anticoagulation. Will defer to neurology in terms of antiplatelet plus anticoagulation choice.
Can start with IV heparin while admitted with plan transition to oral anticoagulation such as Eliquis or Xarelto
� 2D echocardiogram to assess cardiac size, shape, function, and valvular anatomy
� Monitor on telemetry
� Replete electrolytes with goal potassium greater than 4, magnesium greater than 2
� Permissive hypertension with goals per neurology
� Wean Cardizem gtt. and can start oral agent such as metoprolol succinate at 25 mg daily with uptitration or diltiazem 120 mg daily with uptitration; would favor beta-louisa as we are unsure of her LV systolic function
Discussed with nursing, patient and family, hospitalist
Data Reviewed
-
EKG: Tracing Personally Visualized and interpreted
Radiology: Report Reviewed by me
Labs: Labs Reviewed by me
Old Records: Reviewed
[2025-01-29] MEDS: LOPRESSOR 25 MG PO (13:56)
[2025-01-29] MEDS: KLOR-CON 20 MEQ PO (13:56)
--- NOTE | 2025-01-29 14:02 | CM ---
Patient seen at bedside in ED. Patient states that she lives with her in a 2 story home. Patient has no DME at home. Patient has had VN in the distant past and been to [facility] Patient stated that her PCP is Dr. Salinas and she uses the [facility]
in [place] for pharmacy needs. Patient states her plan is for discharge home with no needs and stated that she has many supports at home. CM will continue to follow for discharge planning needs.
Plan;home with VN vs home with no needs; watch for therapy recommendations
--- NOTE | 2025-01-29 14:04 | HPS.HSE ---
Family Physician
-
Family Physician: Clay Salinas
Chief Complaint
-
left sided numbness and weakness
History of Present Illness
74-year-old female with a past medical history significant for prior CVA 2020, reported history of MS, DJD presents for left-sided numbness as well as weakness. Patient states her MS lesions have resolved in the past. Symptoms began 10 PM last
night and thought to be related to her chronic paresthesias although woke up at 1 AM needed to go to the bathroom and felt weak, unsteady unable to walk due to left lower extremity paresthesia which is abnormal for her. The symptoms prompted
hospital evaluation. No other fever, chills, headache. Systolics in emergency room noted to be 200. In the ED also noted to have A-fib with RVR with associated findings of palpitations, shortness of breath and lightheadedness. Denies chest pain
nor shortness of breath currently. Patient was loaded with aspirin and Plavix. Diltiazem was started fo A-fib r. Patient converted to sinus. CT Head and Neck unremarkable for acute pathology
Medical History
Past Medical History
Past Medical History: Reports Other (prior CVA 2020, reported history of MS, DJD, HTN, DLP, vitamin D deficiency, osteoporosis)
Past Surgical History: Reports Other ( Reduction mammoplasty, bilateral cataract surgery, right LASIK(01/26/2025), R TKA, tonsillectomy, ovarian cystectomy)
Social History
Tobacco: Non-smoker
Personal:
Employment: Employed
Family History
Family History: Other ([id number])
Allergies / Home Medications
Allergies reflects when Allergies were last updated in [employer].
Home Medications with original date entered in [employer]
Allergy/Medication List:
Allergies
Allergy/AdvReac Type Severity Reaction Status Date / Time
COVID-19 vaccine, AZD-1222 Allergy Unknown Verified 08/27/23 13:21
(AstraZ
erythromycin base Allergy Rash Verified 08/27/23 13:21
Iodinated Contrast Media Allergy Rash Verified 08/27/23 13:21
procaine (From Novocain) Allergy tachycardia Verified 08/27/23 13:21
Home Medications
Beet Root Capsules 1 cap PO DAILY 01/29/25
Daily Greens Capsule 1 cap PO DAILY 01/29/25
Lactobac no.2-Bifidobac no.1-S. thermo 112.5 billion cell capsule (Visbiome) 1 cap PO DAILY 01/29/25
ascorbic acid (vitamin C) 500 mg tablet (Vitamin C) 500 mg PO DAILY 01/29/25
calcium carbonate 500 mg PO DAILY 01/29/25
cholecalciferol (vitamin D3) 25 mcg (1,000 unit) tablet (Vitamin D3) 25 mcg PO BID 01/29/25
coQ10 (ubiquinol) 100 mg capsule 100 mg PO DAILY 01/29/25
garlic extract 400 mg tablet 400 mg PO DAILY 01/29/25
cait root-herbal drugs 450 mg capsule 450 cap PO DAILY 01/29/25
ginkgo biloba 40 mg tablet 40 mg PO DAILY 01/29/25
magnesium oxide 200 mg PO BID 01/29/25
turmeric 400 mg capsule 400 mg PO DAILY 01/29/25
Review of Systems
-
History Source: Patient
A 12 point ROS was completed and negative except as noted: Yes
Physical Exam
Vital Signs
Vital Signs
Temp Pulse Resp BP Pulse Ox
97.7 F 64 15 135/71 98
01/29/25 02:29 01/29/25 13:56 01/29/25 10:45 01/29/25 10:38 01/29/25 10:45
Physical Exam
General: Well Developed and Well Nourished
HEENT: NormoCephalic
Respiratory: Clear
Cardiac: S1/S2
GI: Soft and Non Tender
Musculoskeletal: No Clubbing
Skin: Warm
Neuro: AO x 3 and Other (V1-V3 intact to light touch and pinprick bilaterally, symmetric. Reduced vibration at the left toe, ankle and right toe and ankle)
Hematologic/Lymphatic: No Lymphadenopathy
Laboratory Results
-
01/29/25 04:35
01/29/25 04:35
Laboratory Results
Total Bilirubin 0.6 mg/dl (0.2-1.3) 01/29/25 04:35
AST 26 U/L (14-36) 01/29/25 04:35
ALT 23 U/L (0-35) 01/29/25 04:35
Alkaline Phosphatase 68 U/L (38-126) 01/29/25 04:35
Data Reviewed
-
CT Scan: Image Personally Visualized and interpreted
Lab Data: Labs Reviewed by me
Impression/Plan
-
IMPRESSION:
74-year-old female with a past medical history significant for prior CVA 2020, reported history of MS, DJD presents for left-sided numbness as well as weakness. Noted to go into Afib RVR and reverted back to sinus.
PLAN:
# Paresthesias
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
� BP control, permissive hypertension as per neurology
� As patient is on anticoagulation, as per neurology, no need for aspirin, Plavix
� Follow-up brain MRI without vangie
� Neurology consult
� Continue telemetry monitoring
� Aspiration precautions
#Atrial fibrillation, paroxysmal
� Spontaneously returned to sinus rhythm on diltiazem drip
� Switch over to Lopressor 25 mg twice daily and titrate as needed; can stop diltiazem drip
� Follow-up echo
� Continue heparin drip
� Cardiology consulted
#Hypertensive emergency
-Cautious lowering of BP by approximately 15 % during the first 24 hours is SBP >220 mmHg or diastolic blood pressure >120 mmHg
�Patient's blood pressure coming down
� Monitor on metoprolol
#DVT prophylaxis
� Heparin drip
Total Critical Care Time 60 minutes. I was immediately available to the patient and staff. I personally examined, reviewed labs, diagnostic images/reports, interpretations, treatment plans, discussed patient care with other providers and family
or caregivers (if patient is unable to make decisions), entered orders as appropriate and documented the medical record.
[2025-01-29 15:15] LABS: APTT 31.3 Sec (23.4-35.0)
--- NOTE | 2025-01-29 16:24 | PTCARENOTE ---
VS captured from ED. Cannot confirm accuracy prior to 1620.
[2025-01-29 17:10] LABS: Hematocrit 38.8 % (37.0-47.0); Hemoglobin 13.1 g/dL (12.0-16.0); Mean Corp Hgb Conc. 33.8 g/dL (33.0-37.0); Mean Corpuscular Volume 86.6 fL (81.0-99.0); Platelet Count 243 10^3/uL (130-400); Red Cell Dist. Width 13.5 % (11.5-14.5)
[2025-01-29] MEDS: HEPARIN 25000 UNITS/250 ML IV (17:10)
[2025-01-29 17:15] LABS: HDL Cholesterol 75 mg/dl; LDL Cholesterol, Calculated 124 mg/dl; Very Low Density Lipoprotein 16 mg/dl (0-30)
[2025-01-29 17:20] LABS: APTT 31.3 Sec (23.4-35.0)
[2025-01-29 17:32] LABS: Troponin I 0.038 ng/ml
[2025-01-29] MEDS: LOPRESSOR PO (19:42)
[2025-01-29] MEDS: TYLENOL 650 MG PO (19:48)
--- NOTE | 2025-01-29 19:59 | W.PN.UPDATE ---
Update Note
Progress Note Update
Chart reviewed, will place heparin on hold till discussed with neurology in a.m.
[2025-01-29 22:56] LABS: Troponin I 0.024 ng/ml
--- NOTE | 2025-01-29 23:18 | PTCARENOTE ---
assumed care of patient. pt is AAOx3- able to make needs known. VSS. 97% RA. sinus whitney on the monitor, rates 40s-50s. no a-fib noted at this time. pt refused HS dose of metoprolol d/t HR being low, documented on JUN. NIH documented-1. pt with
paraesthesias to left side of head all the way down to bottom of left foot. pt does admit to it feeling a little bit better than earlier today but the numbness is still there. heparin gtt placed on hold per order. pt aware. pt does admit to a slight
headache, PO tylenol given per JUN with positive effect. able to walk into the bathroom x1 assist without any devices. stoke packet given, knee high SCD's placed on patient. call lechuga within reach, care ongoing.
[2025-01-30] VITALS (13 sets, daily range): BP systolic 103–168; BP diastolic 58–117; PULSE 62–74
[2025-01-30 05:08] LABS: Hematocrit 41.0 % (37.0-47.0); Hemoglobin 13.7 g/dL (12.0-16.0); Mean Corp Hgb Conc. 33.4 g/dL (33.0-37.0); Mean Corpuscular Volume 90.1 fL (81.0-99.0); Platelet Count 248 10^3/uL (130-400); Red Cell Dist. Width 13.6 % (11.5-14.5)
[2025-01-30 05:35] LABS: Blood Urea Nitrogen 10 mg/dl (7-17); Calcium 9.4 mg/dl (8.4-10.2); Carbon Dioxide 26 mmol/L (22-30); Chloride 110 mmol/L (98-107); Estimated Creatinine Clearance 68 ml/min; Glucose 92 mg/dl (70-99); HDL Cholesterol 75 mg/dl; LDL Cholesterol, Calculated 115 mg/dl; Magnesium 2.3 mg/dl (1.6-2.3); Potassium 3.9 mmol/L (3.5-5.1); Sodium 140 mmol/L (135-145); Very Low Density Lipoprotein 21 mg/dl (0-30); eGFR > 60.00
[2025-01-30 05:46] LABS: Troponin I 0.025 ng/ml
[2025-01-30 06:22] LABS: Vitamin B12 888 pg/ml (239-931)
[2025-01-30 08:40] LABS: Glycohemoglobin (HgbA1c) 5.5 % (4.0-5.6)
[2025-01-30] MEDS: VITAMIN B-12 2500 MCG PO (08:57)
[2025-01-30] MEDS: LOPRESSOR PO (08:58)
[2025-01-30] MEDS: PROTONIX 40 MG PO (08:58)
[2025-01-30] MEDS: ASPIR LOW (ENTERIC COATED) 81 MG PO (08:58)
--- NOTE | 2025-01-30 09:50 | W.PN.HOSP.TC ---
Today's Communication/Plan
-
Acute stroke on MRI brain
Assessment / Plan
Assessment / Plan
75F w/prior CVA 2020, reported history of MS, DJD p/w left-sided numbness/weakness, concern for CVA. Noted to go into Afib RVR and reverted back to sinus without intervention.
Acute CVA
Paresthesias
� small acute infarct of R thalamus on MRI brain
Patient has remote history of MS, however was told she no longer had any white lesions and is not on any medication
CTH unremarkable
� Continue telemetry monitoring
� Aspiration precautions
� BP control, permissive hypertension as per neurology for 24 to 48 hours, unless stroke is ruled out. BB as below
� As patient is on anticoagulation, as per neurology, no need for aspirin, Plavix
Atrial fibrillation, paroxysmal
� Spontaneously returned to sinus rhythm on diltiazem drip. Patient reports she was stressed during CTH and believes this is the trigger
� Switch over to Lopressor 25 mg twice daily and titrate as needed -- will be deescalated as pt became bradycardic with this
� Follow-up echo, pending
� heparin drip discontinued as per cardiology. DoAC when ok with neurology
Hypertensive emergency
-Cautious lowering of BP by approximately 15 % during the first 24 hours if SBP >220 mmHg or diastolic blood pressure >120 mmHg
�Patient's blood pressure coming down
� Monitor on metoprolol but pt becoming bradycardic will likely need a different choice
pt reports significant white coat hypertension
DVT prophylaxis
Heparin drip on hold
Anticipated Discharge: 24 - 48 hours
Subjective/Interval History
-
Date of Service: January 30, 2025
Patient feeling well, currently no symptoms, intermittently gets bandlike pain similar to having a TENS unit on over low abdomen moving from left to right when she is in certain positions. Notes she had this many years ago as well, and was treating
it with massage therapy.
Objective Data
-
Labs:
Laboratory Results
01/30/25
04:37
WBC 6.4
Hgb 13.7
Hct 41.0
Plt Count 248
Sodium 140
Potassium 3.9
Chloride 110 H
Carbon Dioxide 26
BUN 10
Creatinine 0.6
Glucose 92
Calcium 9.4
Vital Signs:
Vital Signs
Temp Pulse Resp BP Pulse Ox
97.7 F 50 16 153/71 95
01/30/25 07:35 01/30/25 08:58 01/30/25 08:57 01/30/25 08:57 01/30/25 06:00
Review of Systems
-
All other systems: Reviewed and negative
Physical Exam
-
General: No Apparent Distress
HEENT: Moist Mucous Membranes, Anicteric and PERRLA
Respiratory: Clear to Auscultation; Negative Wheezes, Rales or Rhonchi
Cardiac: Regular Rhythm and S1/S2; Negative Murmur, Rub or Gallop
GI: Soft, Nontender, Nondistended and Normal Bowel Sounds
Musculoskeletal: No Edema
Skin: Warm and Dry; Negative Rash, Ulcers or Lesions
Neuro: Awake, AO x 3, No Motor Deficits (5/5 strength BLE/BUE), Nonfocal/Grossly Intact and Central Nerve's Intact
Hematologic / Lymphatic: No Lymphadenopathy
Psych: Calm
Data Reviewed
-
CT Scan: Report Reviewed by me and Discussed with Patient
Labs: Labs Reviewed by me
--- NOTE | 2025-01-30 11:09 | W.PN.CARDCBS ---
Today's Communication / Plan
-
Await MRI, await echo
Eventual initiation of DOAC with DC of antiplatelet agents
Reduce metoprolol
Impression / Plan
-
PCP: Dr. Clay Salinas
Boring Machine Operator Horizontal: Dr aGry Friend ([facility])
Impression:
Suspected right hemispheric cardioembolic stroke vs flare of multiple sclerosis
History of CVA 2020
Hypertension
Hypercholesterolemia
Osteoporosis
Osteoarthritis
Whitecoat hypertension
Right total knee arthroplasty
Plan:
Overall she seems stable despite her neurologic deficits.
She is bradycardic, not clear that she will tolerate current doses of metoprolol so we will de-escalate.
Still hypertensive, but at home she is normotensive. No changes for now though may need antihypertensive therapy.
CTA did not show significant atherosclerosis. Currently on atorvastatin 40 mg a day, which is reasonable given LDL of 115 and total cholesterol of 211, 4 primary prevention
Initiation of DOAC in place of antiplatelet agents when okay with neurology.
Progress Note - Boring Machine Operator Horizontal
Subjective
Date of Service: January 30, 2025:
Numbness on the left side arm and leg improved but still present. Very bradycardic, normally heart rate 60 at home, typically blood pressure is 110 systolic at home.
74-year-old woman admitted with suspected right hemisphere CVA, hypertensive urgency, and found to have new onset atrial fibrillation
PMH: multiple sclerosis, hypertension, hypercholesterolemia, osteoarthritis, osteoporosis, CVA 2020, reduction marcelle plasty, right total knee arthroplasty, oophorectomy
Current medications: Metoprolol tartrate 25 g twice daily, atorvastatin 40 mg daily, pantoprazole 40 mg a day, vitamin B12, aspirin 81 mg a day, patient currently not on clopidogrel
165/86, pulse 59, respiratory rate 12, afebrile, head neck exam unremarkable, lungs are clear, cardiac exam unremarkable, neuro with decreased sensation/paresthesias on left, extremities without clubbing cyanosis or edema
ECG: Sinus rhythm, nonspecific ST T changes
CTA of head and neck no significant atherosclerosis
CT of head no acute intracranial abnormality
MRI: Pending
Hemoglobin 13.7, platelets 248, BUN and creatinine are 10 and 0.6, potassium is 3.9, Peak troponin is 0.038
Objective
Labs:
01/30/25 04:37
01/30/25 04:37
Labs
Hgb 13.7 g/dL (12.0-16.0) 01/30/25 04:37
Hct 41.0 % (37.0-47.0) 01/30/25 04:37
Plt Count 248 10^3/uL (130-400) 01/30/25 04:37
APTT Cancelled 01/29/25 23:00
Sodium 140 mmol/L (135-145) 01/30/25 04:37
Potassium 3.9 mmol/L (3.5-5.1) 01/30/25 04:37
BUN 10 mg/dl (7-17) 01/30/25 04:37
Creatinine 0.6 mg/dL (0.6-1.0) 01/30/25 04:37
Glucose 92 mg/dl (70-99) 01/30/25 04:37
Troponins
01/29/25 01/29/25 01/30/25
16:52 22:19 04:37
Troponin I 0.038 H* 0.024 D 0.025
Vital Signs and I&O:
Vital Signs
Temp Pulse Resp BP Pulse Ox
36.5 C 59 12 165/86 95
01/30/25 07:35 01/30/25 10:07 01/30/25 10:07 01/30/25 10:07 01/30/25 06:00
Vital Signs
Temp Pulse Resp BP Pulse Ox
36.5 C 59 12 165/86 95
01/30/25 07:35 01/30/25 10:07 01/30/25 10:07 01/30/25 10:07 01/30/25 06:00
Intake & Output
01/28/25 01/29/25 01/30/25 01/31/25
07:59 07:59 07:59 07:59
Intake Total 300 / 300
Balance 300 / 300
Physical Exam
Physical Exam
See above
--- NOTE | 2025-01-30 12:27 | PTOTSP ---
Dysphagia Evaluation
Oral/pharyngeal swallow WFL. No signs of dysarthria or aphasia during clinical bedside swallow evaluation.
Recommend:
1. Regular, Thin
2. Medications as best tolerated
3. No further dysphagia tx. Cognitive linguistic communication evaluation pending results of MRI of Brain.
--- NOTE | 2025-01-30 13:16 | W.PN.NEURO.1 ---
Addendum entered and electronically signed by Roney Heck MD 01/30/25 21:19:
I have seen and examined the patient today. I have discussed the patient with nurse practitioner Mayuri Briones and I agree with her assessment and management plan. Given below is my impression.
The patient's blood pressure was 200/100 when she arrived in ER and she was found to be in atrial fibrillation with RVR.
The patient is a 75 years old female who presented with left-sided motor and sensory deficits.
MRI of the brain showed a small acute infarct in the right thalamus.
CTA of the head and neck did not show any occlusion, aneurysm or dissection.
The patient had an acute right thalamic infarct.
As the patient was found to be in atrial fibrillation anticoagulation with Eliquis is recommended. The patient is going to be on stroke pathway. The plan is to stop antiplatelet when the patient is started on Eliquis. She is also going to be on
atorvastatin 40 mg daily.
Will sign off. Please call if you have any question.
Original Note:
Today's Communication / Plan
-
.
Neuro Assessment/Plan
Assessment
This is a 75-year-old right-handed woman who presented to [facility] on 01/29/2025 with left-sided motor and sensory deficits. Blood pressure on arrival was 200/100, she was in Afib with RVR on telemetry monitoring in the ER.
-CT head 01/29/25: No acute intracranial abnormality noted.
-CTA head/neck 01/29/25: No significant vascular occlusion, aneurysm or dissection.
-MRI brain 01/30/25: Small acute infarct of the right thalamus. Small chronic infarct of the right periventricular marroquin radiata and superior right basal ganglia.
I. Acute small right thalamic ischemic stroke; the appearance would typically indicate small vessel disease as the source, but a small percentage of cardioembolic strokes can have this appearance.
II. Old right marroquin radiata/basal ganglia small stroke.
III. A-fib with RVR
IV. Hypertensive emergency
Plan
-Okay to initiate anticoagulation tomorrow 01/31/25. Stop DAPT once DOAC is initiated.
-Slow lowering of BP to goal normotension.
-Restart antihypertensive medications if BP>140/90 mmHg and neurologically stable in 24 to 48 hours after stroke onset.
-LDL goal <70. LDL is 115. Initiate atorvastatin 40mg daily.
-Goal normoglycemia, hbA1c is 5.5.
-NIHSS and neurological checks per unit guidelines.
-Provide patient with a stroke education packet.
-PT/OT/ST evaluations.
-Follow-up with Neurology as an outpatient.
Subjective/Objective
Subjective Data
Date of Service: January 30, 2025
No acute events overnight. Patient reports ongoing numbness/mild weakness in her left arm/leg. She denies any headache, dizziness, vision changes, and speech/swallow difficulty.
Objective Data
Vital Signs
Temp Pulse Resp BP Pulse Ox
97.7 F 59 12 165/86 95
01/30/25 11:43 01/30/25 10:07 01/30/25 10:07 01/30/25 10:07 01/30/25 06:00
Lab Results
01/30/25 04:37
01/30/25 04:37
APTT Cancelled 01/29/25 23:00
Sodium 140 mmol/L (135-145) 01/30/25 04:37
Potassium 3.9 mmol/L (3.5-5.1) 01/30/25 04:37
BUN 10 mg/dl (7-17) 01/30/25 04:37
Glucose 92 mg/dl (70-99) 01/30/25 04:37
Calcium 9.4 mg/dl (8.4-10.2) 01/30/25 04:37
LDL Cholesterol, Calc 115 mg/dl 01/30/25 04:37
Vitamin B12 888 pg/ml (239-931) 01/30/25 04:37
Patient Allergies
COVID-19 vaccine, [id number]-1222 (AstraZ Allergy (Verified 08/27/23 13:21)
Unknown
erythromycin base Allergy (Verified 08/27/23 13:21)
Rash
Iodinated Contrast Media Allergy (Verified 08/27/23 13:21)
Rash
procaine (From Novocain) Allergy (Verified 08/27/23 13:21)
tachycardia
LDL Level: >70, statin ordered
Review of Systems
-
History Source: Patient
EENT: Negative Blurry Vision, Decreased Vision or Swallowing Difficulty
Respiratory: Negative Cough or Trouble Breathing
Cardiac: Negative Chest Pain or Palpitations
Neuro: Weakness and Numbness; Negative Dizzy, Headache, Ataxia, Tremors or Speech Problem
Physical Exam
-
General: Well Developed, Well Nourished and No Apparent Distress
Eyes: No Ptosis and PERRLA
HEENT: Normocephalic and Atraumatic
Neck: Full Range of Motion
Respiratory: No Dyspnea
GI: Non-distended
Extremities: No Clubbing, No Cyanosis and No Edema
Psych: Unremarkable
Extended Neurological Exam
Mood & Affect: Mood Unremarkable and Affect Unremarkable
Attention Span & Concentration: Awake, Alert and Interactive
Memory: Unremarkable and Able to Recall
Tremor: Hand Tremor Absent and Head Tremor Absent
Involuntary Movement: None
Speech: Quality Unremarkable, Quantity Unremarkable and Rate of Production Unremarkable
Cranial Nerve II: Left Eye: Pupillary Reactivity Unremarkable, Pupillary Size Unremarkable and Visual Young Intact
Cranial Nerve II: Right Eye: Pupillary Reactivity Unremarkable, Pupillary Size Unremarkable and Visual Young Intact
Cranial Nerves III, IV, : Extraocular Movement: Extraocular Movement Full in all Directions
Cranial Nerve VII: Facial Symmetry: Normal Facial Symmetry
Cranial Nerve VIII: Hearing: Unremarkable Hearing to Normal Conversational Volume
Cranial Nerve XII: Tongue Protusion: Midline
Muscle Strength, Overall: Full Throughout
Pronator Drift: No Drift in Upper Extremities and No Drift in Lower Extremities
Touch Sensation: Double Simultaneous Stimulation Unremarkable
Coordination: Gljkrj-gzhv-ueujjw Testing Unremarkable
Modified Eric Score (MRS)
-
Modified Timewell Scale (mRS): No significant disability. Able to carry out usual activities.
Score: 1
Data Reviewed
-
CT-A: Report Reviewed
CT-Perfusion: Report Reviewed and Image Reviewed
CT Head: Report Reviewed and Image Reviewed
MRI Head: Report Reviewed and Image Reviewed
Labs: Report Reviewed
Lipid Profile: Report Reviewed
HgbA1C: Report Reviewed
Reviewed with: Physician, Patient and Family
Medications
-
Active Medications
Generic Name Dose Route Start Last Admin
Trade Name Freq PRN Reason Stop Dose Admin
Acetaminophen 650 mg 01/29/25 16:12
Acetaminophen 650 Mg Rectal Suppository RECTAL 02/26/25 16:11
Q4HPRN PRN
SWAN, mild pain, or temp >100.4F
Acetaminophen 650 mg 01/29/25 16:12 01/29/25 19:48
Acetaminophen 325 Mg Tablet PO 02/26/25 16:11 650 mg
Q4HPRN PRN Administration
SWAN, mild pain, or temp >100.4F
Aspirin 81 mg 01/30/25 08:00 01/30/25 08:58
Aspirin 81 Mg (Enteric Coated) Tablet PO 02/27/25 07:59 81 mg
DAILY NARCISA Administration
Atorvastatin Calcium 40 mg 01/29/25 18:00 01/29/25 17:15
Atorvastatin (Lipitor) 40 Mg Tablet PO 02/26/25 17:59 Not Given
QPM NARCISA
Cyanocobalamin 2,500 mcg 01/30/25 08:00 01/30/25 08:57
Cyanocobalamin (Vitamin B-12) 500 Mcg Tablet PO 02/27/25 07:59 2,500 mcg
DAILY NARCISA Administration
Metoprolol Succinate 12.5 mg 01/31/25 08:00
Metoprolol 12.5 Mg Extended Release Dose (1/2 Of 25 Mg Xl Tablet) PO 02/28/25 07:59
DAILY NARCISA
Pantoprazole Sodium 40 mg 01/30/25 08:00 01/30/25 08:58
Pantoprazole 40 Mg Delayed Release Tablet PO 02/27/25 07:59 40 mg
DAILY NARCISA Administration
Sodium Chloride 0 flush 01/29/25 13:00
Sodium Chloride 0.9% (Flush) Syringe IV 02/26/25 12:59
PER PROTOCOL NARCISA
Home Medications
�Medication �Instructions �Recorded
Beet Root Capsules 1 cap PO DAILY Supplement 01/29/25
Daily Greens Capsule 1 cap PO DAILY Supplement 01/29/25
Lactobac no.2-Bifidobac no.1-S. 1 cap PO DAILY Gastrointestinal 01/29/25
thermo 112.5 billion cell capsule Issue
(Visbiome)
ascorbic acid (vitamin C) 500 mg 500 mg PO DAILY Supplement 01/29/25
tablet (Vitamin C)
calcium carbonate 500 mg PO DAILY Supplement 01/29/25
cholecalciferol (vitamin D3) 25 25 mcg PO BID Supplement 01/29/25
mcg (1,000 unit) tablet (Vitamin
D3)
coQ10 (ubiquinol) 100 mg capsule 100 mg PO DAILY Supplement 01/29/25
garlic extract 400 mg tablet 400 mg PO DAILY Supplement 01/29/25
cait root-herbal drugs 450 mg 450 cap PO DAILY Supplement 01/29/25
capsule
ginkgo biloba 40 mg tablet 40 mg PO DAILY Supplement 01/29/25
magnesium oxide 200 mg PO BID Electrolyte Repletion 01/29/25
turmeric 400 mg capsule 400 mg PO DAILY Supplement 01/29/25
--- NOTE | 2025-01-30 15:10 | CM ---
F/U: OBED Dukes saw that PT/OT recommended No SNFS, No Home PT, No Outpatient. Case Management to follow if there are any other needs. PLAN: Home No Needs.
--- NOTE | 2025-01-30 19:06 | PTCARENOTE ---
Escorted to MRI earlier, study completed tele stayed SB 50s whole study. Neuro checks/ GCS 15, NIHSS unchanged remains 1- however reports sensory improvement in her left arm and leg. SR/SB 50s all day- Metoprolol held this am and made Dr. APURVA Wilson
aware. Ambulates with assistance.
[2025-01-31] VITALS (20 sets, daily range): BP systolic 123–167; BP diastolic 65–141; PULSE 61
[2025-01-31 06:31] LABS: Hematocrit 39.7 % (37.0-47.0); Hemoglobin 13.3 g/dL (12.0-16.0); Mean Corp Hgb Conc. 33.5 g/dL (33.0-37.0); Mean Corpuscular Volume 87.4 fL (81.0-99.0); Platelet Count 226 10^3/uL (130-400); Red Cell Dist. Width 13.2 % (11.5-14.5)
[2025-01-31 06:56] LABS: Blood Urea Nitrogen 17 mg/dl (7-17); Calcium 9.5 mg/dl (8.4-10.2); Carbon Dioxide 25 mmol/L (22-30); Chloride 110 mmol/L (98-107); Estimated Creatinine Clearance 59 ml/min; Glucose 98 mg/dl (70-99); Potassium 3.8 mmol/L (3.5-5.1); Sodium 140 mmol/L (135-145); eGFR > 60.00
[2025-01-31] MEDS: VITAMIN B-12 2500 MCG PO (08:36)
[2025-01-31] MEDS: TOPROL XL 12.5 MG PO (08:37)
[2025-01-31] MEDS: ELIQUIS 5 MG PO ×2 (08:37→20:20)
[2025-01-31] MEDS: PROTONIX 40 MG PO (08:37)
--- NOTE | 2025-01-31 09:56 | W.PN.CARDCBS ---
Today's Communication / Plan
-
Add losartan 25 mg for hypertension
Discharge planning
Continue metoprolol ER 12.5 mg daily
We will arrange for cardiac follow-up
Impression / Plan
-
PCP: Dr. Clay Salinas
Senior Test Engineer: Dr Gary Friend ([facility])
Impression:
Suspected right hemispheric cardioembolic stroke vs flare of multiple sclerosis
History of CVA 2020
Hypertension
Hypercholesterolemia
Osteoporosis
Osteoarthritis
Whitecoat hypertension
Right total knee arthroplasty
Plan:
Overall doing well from cardiac standpoint. No further atrial fibrillation. Now on Eliquis, aspirin has been stopped.
Neurologically, patient doing reasonably well also.
Still somewhat hypertensive, will add losartan 25 mg a day.
Her echocardiogram is satisfactory.
Given that patient is already anticoagulated, importance of long-term outpatient monitoring is less.
Okay to begin discharge planning, we will arrange for cardiac follow-up.
Progress Note - Senior Test Engineer
Subjective
Date of Service: January 31, 2025:
74-year-old woman admitted with suspected right hemisphere CVA, hypertensive urgency, and found to have new onset atrial fibrillation
Numbness on the left side arm and leg improved but still present. Very bradycardic, normally heart rate 60 at home, typically blood pressure is 110 systolic at home.
PMH: multiple sclerosis, hypertension, hypercholesterolemia, osteoarthritis, osteoporosis, CVA 2020, reduction marcelle plasty, right total knee arthroplasty, oophorectomy
Medications: Atorvastatin 40 mg a day, pantoprazole 40 mg a day, vitamin B12, metoprolol succinate 12.5 mg daily, apixaban 5 mg daily
159/97, pulse 60, respiratory rate 17, afebrile, sats 99%, Lungs are clear regular rate rhythm, neuro with some sensory deficits on left,/paresthesias, extremities without clubbing cyanosis or edema
Brain MRI small acute right thalamic infarcts
Hemoglobin 13.3, BUN and creatinine are 17 and 0.7, potassium is 3.8
Echocardiogram: EF 60-65%'s, small LV, mild LVH, mild TR,
Objective
Labs:
01/31/25 06:11
01/31/25 06:11
Labs
Hgb 13.3 g/dL (12.0-16.0) 01/31/25 06:11
Hct 39.7 % (37.0-47.0) 01/31/25 06:11
Plt Count 226 10^3/uL (130-400) 01/31/25 06:11
APTT Cancelled 01/29/25 23:00
Sodium 140 mmol/L (135-145) 01/31/25 06:11
Potassium 3.8 mmol/L (3.5-5.1) 01/31/25 06:11
BUN 17 mg/dl (7-17) 01/31/25 06:11
Creatinine 0.7 mg/dL (0.6-1.0) 01/31/25 06:11
Glucose 98 mg/dl (70-99) 01/31/25 06:11
Troponins
01/29/25 01/29/25 01/30/25
16:52 22:19 04:37
Troponin I 0.038 H* 0.024 D 0.025
01/30/25
10:12
Troponin I Cancelled
Vital Signs and I&O:
Vital Signs
Temp Pulse Resp BP Pulse Ox
36.8 C 60 17 159/97 99
01/31/25 03:00 01/31/25 08:37 01/31/25 06:00 01/31/25 08:37 01/30/25 20:55
Vital Signs
Temp Pulse Resp BP Pulse Ox
36.8 C 60 17 159/97 99
01/31/25 03:00 01/31/25 08:37 01/31/25 06:00 01/31/25 08:37 01/30/25 20:55
Intake & Output
01/29/25 01/30/25 01/31/25 02/01/25
07:59 07:59 07:59 07:59
Intake Total 300 / 300
Balance 300 / 300
Physical Exam
Physical Exam
See above
--- NOTE | 2025-01-31 12:20 | PTCARENOTE ---
Patient AAOx3, [facility], reports still having LLE and LUE numbness but that it is improving, numbness starts at left shoulder. VSS. NSR on monitor. Will continue to closely monitor.
[2025-01-31] MEDS: COZAAR 25 MG PO (13:12)
--- NOTE | 2025-01-31 13:36 | CM ---
Addendum entered by Roseline Bahena 01/31/25 15:07:
Hospitalist asked to run 2 more medications and the cost are below:
Pradaxa- $181.00
Xarelto- $689.00
OBED Dukes asked the Pharmacy at [facility] #[phone] more about what information they had. Patient does not have a prescription plan with their insurance, they use [facility] only. This possible is why the cost could be higher, which is due to no
insurance prescription plan to assist with the [facility] co-pay program. Hospitalist aware.
Original Note:
F/U: OBED Dukes learned from RN that patient is on Eliquis. Asked Hospitalist if we can check pricing, confirmed, and was able to provide verbal with [facility] in [place] who stated that patient copay is $675.00. Informed Hospitalist of this who
asked about 30 day copay free card and stated that the $10 copay card is 1x use, but this patient with Medicare cannot, and for the 30 day free card, it can only be used 1x for only 1 month in a patient's lifetime.
PLAN: Home No Needs
--- NOTE | 2025-01-31 14:12 | W.PN.HOSP.TC ---
Today's Communication/Plan
-
Blood pressure control
DOAC
Assessment / Plan
Assessment / Plan
75F w/prior CVA 2020, reported history of MS, DJD p/w left-sided numbness/weakness, concern for CVA. Noted to go into Afib RVR and reverted back to sinus without intervention.
Acute CVA
Paresthesias
� small acute infarct of R thalamus on MRI brain
Patient has remote history of MS, however was told she no longer had any white lesions and is not on any medication
CTH unremarkable
� Continue telemetry monitoring
� Aspiration precautions
� BP control
Atorvastatin per neurology, LDL is 115, goal LDL less than 70
� As patient is on anticoagulation, as per neurology, no need for aspirin, Plavix
Atrial fibrillation, paroxysmal
� Spontaneously returned to sinus rhythm on diltiazem drip. Patient reports she was stressed during CTH and believes this is the trigger
� Beta-louisa as below
� Follow-up echo showed normal EF with no regional wall motion abnormalities, mild TR, mild VA
� heparin drip discontinued as per cardiology. DoAC initiated, Eliquis per neurology plan. Issue is that patient's insurance is not covering and will be $675/month per CM. Will ask to check for Xarelto and Pradaxa as well.
Hypertensive emergency
-Cautious lowering of BP by approximately 15 % during the first 24 hours if SBP >220 mmHg or diastolic blood pressure >120 mmHg
Completed permissive hypertension
�Patient's blood pressure coming down
� Monitor on metoprolol, limited by bradycardia, HR 50s, dose has been adjusted to Toprol-XL 12.5 mg once daily
Cardiology also added losartan 25 mg daily
pt reports significant white coat hypertension
DVT prophylaxis
Eliquis
Anticipated Discharge: 24 - 48 hours
Subjective/Interval History
-
Date of Service: January 31, 2025
Denies any acute issues overnight, was able to sleep. Is concerned about her high blood pressure.
Objective Data
-
Labs:
Laboratory Results
01/31/25
06:11
WBC 6.2
Hgb 13.3
Hct 39.7
Plt Count 226
Sodium 140
Potassium 3.8
Chloride 110 H
Carbon Dioxide 25
BUN 17
Creatinine 0.7
Glucose 98
Calcium 9.5
Vital Signs:
Vital Signs
Temp Pulse Resp BP Pulse Ox
97.7 F 61 19 155/67 98
01/31/25 11:42 01/31/25 13:12 01/31/25 12:00 01/31/25 13:12 01/31/25 08:00
I&O
01/30/25 01/31/25 02/01/25
06:59 06:59 06:59
Intake Total 300 / 300
Balance 300 / 300
Review of Systems
-
All other systems: Reviewed and negative
Physical Exam
-
General: No Apparent Distress
HEENT: Moist Mucous Membranes, Anicteric and PERRLA
Respiratory: Clear to Auscultation; Negative Wheezes, Rales or Rhonchi
Cardiac: Regular Rhythm and S1/S2; Negative Murmur, Rub or Gallop
GI: Soft, Nontender, Nondistended and Normal Bowel Sounds
Musculoskeletal: No Edema
Skin: Warm and Dry; Negative Rash, Ulcers or Lesions
Neuro: Awake, AO x 3, No Motor Deficits (5/5 strength BLE/BUE), Nonfocal/Grossly Intact and Central Nerve's Intact
Hematologic / Lymphatic: No Lymphadenopathy
Psych: Calm
Data Reviewed
-
CT Scan: Report Reviewed by me and Discussed with Patient
Labs: Labs Reviewed by me
[2025-02-01] VITALS (7 sets, daily range): BP systolic 140–178; BP diastolic 69–95
--- NOTE | 2025-02-01 01:09 | PTCARENOTE ---
patient still reporting left sided weakness and numbness. Ambulated to the bathroom with just a stand by assist. No other complaints at this time. assessment and vitals as charted. call lechuga in reach.
[2025-02-01 05:11] LABS: Hematocrit 39.7 % (37.0-47.0); Hemoglobin 13.0 g/dL (12.0-16.0); Mean Corp Hgb Conc. 32.7 g/dL (33.0-37.0); Mean Corpuscular Volume 88.6 fL (81.0-99.0); Platelet Count 223 10^3/uL (130-400); Red Cell Dist. Width 13.2 % (11.5-14.5)
[2025-02-01 05:33] LABS: Blood Urea Nitrogen 18 mg/dl (7-17); Calcium 9.3 mg/dl (8.4-10.2); Carbon Dioxide 26 mmol/L (22-30); Chloride 108 mmol/L (98-107); Estimated Creatinine Clearance 68 ml/min; Glucose 101 mg/dl (70-99); Potassium 3.4 mmol/L (3.5-5.1); Sodium 140 mmol/L (135-145); eGFR > 60.00
[2025-02-01] MEDS: TOPROL XL 12.5 MG PO (08:39)
[2025-02-01] MEDS: ELIQUIS 5 MG PO (08:39)
[2025-02-01] MEDS: PROTONIX 40 MG PO (08:39)
[2025-02-01] MEDS: VITAMIN B-12 2500 MCG PO (08:39)
[2025-02-01] MEDS: COZAAR 25 MG PO (08:39)
--- NOTE | 2025-02-01 09:21 | W.PN.CARDCBS ---
Today's Communication / Plan
-
Overall doing well and blood pressure improved.
Continue Eliquis with paroxysmal atrial fibrillation. Okay to switch to Xarelto or Pradaxa if more cost effective
Continue Cozaar and metoprolol.
Continue atorvastatin. Okay for discharge from cardiac standpoint
Impression / Plan
-
PCP: Dr. Clay Salinas
Implementation Specialist Payroll: Dr Gary Friend ([facility])
Impression:
Right thalamic acute infarct
History of CVA 2020
Hypertension
Hypercholesterolemia
Osteoporosis
Osteoarthritis
Whitecoat hypertension
Right total knee arthroplasty
Plan:
Overall doing well from cardiac standpoint. Remains in sinus rhythm.
Echo with preserved LV function and mild valvular disease.
Would continue long-term anticoagulation with Eliquis. If unable to afford Eliquis Xarelto or Pradaxa would be acceptable substitutes.
Blood pressure is improved with the addition of losartan.
Continue low-dose metoprolol. Continue atorvastatin.
Okay for discharge from cardiac standpoitn
Progress Note - Implementation Specialist Payroll
Subjective
Date of Service: February 01, 2025
Denies chest pain or shortness of breath. No new neurologic symptom
Objective
Labs:
02/01/25 04:36
02/01/25 04:36
Labs
Hgb 13.0 g/dL (12.0-16.0) 02/01/25 04:36
Hct 39.7 % (37.0-47.0) 02/01/25 04:36
Plt Count 223 10^3/uL (130-400) 02/01/25 04:36
APTT Cancelled 01/29/25 23:00
Sodium 140 mmol/L (135-145) 02/01/25 04:36
Potassium 3.4 mmol/L (3.5-5.1) L 02/01/25 04:36
BUN 18 mg/dl (7-17) H 02/01/25 04:36
Creatinine 0.6 mg/dL (0.6-1.0) 02/01/25 04:36
Glucose 101 mg/dl (70-99) H 02/01/25 04:36
Troponins
01/29/25 01/29/25 01/30/25
16:52 22:19 04:37
Troponin I 0.038 H* 0.024 D 0.025
01/30/25
10:12
Troponin I Cancelled
Vital Signs and I&O:
Vital Signs
Temp Pulse Resp BP Pulse Ox
97.7 F 54 18 150/81 95
02/01/25 03:00 02/01/25 08:00 02/01/25 08:00 02/01/25 08:00 02/01/25 00:40
Vital Signs
Temp Pulse Resp BP Pulse Ox
97.7 F 54 18 150/81 95
02/01/25 03:00 02/01/25 08:00 02/01/25 08:00 02/01/25 08:00 02/01/25 00:40
Intake & Output
01/30/25 01/31/25 02/01/25 02/02/25
06:59 06:59 06:59 06:59
Intake Total 300 / 300
Balance 300 / 300
Physical Exam
Physical Exam
GEN: No distress, awake, Ox3
HEENT: supple, anicteric, mmm
LUNGS: CTA, no wheezes/rales
CV: Reg, S1/S2, 1/6 syst LSB, no gallop
ABD: soft, BS+, NT/ND
EXT: No edema
NEURO: Gross non-focal
SKIN: No rash
--- NOTE | 2025-02-01 09:48 | W.DCSUMMARY ---
Discharge Summary
Discharge Data
Date of Admission: 01/29/25
Date of Discharge: 02/01/25
Total time spent discharging patient (in min): 40
-
Pending Results: No
Hospital Course
Attending physician on day of discharge:
Geovanna Knight MD
Admission diagnosis:
Paresthesias
Discharge diagnosis:
Acute CVA
Paroxysmal atrial fibrillation
Hypertension
Consultations:
Neurology
Procedures:
None
Hospital course:
75F w/prior CVA 2020, reported history of MS, DJD p/w left-sided numbness/weakness, as well as bandlike pain around her abdomen, concern for CVA. Noted to go into Afib RVR while in CAT scan and reverted back to sinus with diltiazem. Remained in
sinus the rest of the admission, was seen by cardiology who placed her on metoprolol, dose was limited by bradycardia, and Eliquis. Seen by neurology, MRI showed small acute infarct of right thalamus, she was treated with stroke protocol including
permissive hypertension, anticoagulation, atorvastatin. Losartan was then started after permissive hypertensive to help control blood pressure. See progress notes for details.
Physical exam on discharge:
Gen: NAD
HEENT: PERRLA, EOMI, MMM, neck supple
Cards: RRR, no M/G/R
Resp: Lungs CTAB, no W/R/R
GI: soft, NT/ND/NABS
MSK: No edema
Skin: warm and dry, no rash, ulcer or lesions
Heme: No LAD
Psych: Calm
Neuro: AAOx3
Diagnostic findings:
CTh:No acute intracranial abnormality noted.
MRI brain:
0.7 cm focus of restricted diffusion in the right thalamus (series 302, image 112) consistent with an acute infarct.
Mild age-related parenchymal atrophy. Small chronic infarct of the right periventricular marroquin radiata and superior right basal ganglia. T2/FLAIR hyperintense signal in the white matter of the bilateral cerebral hemispheres, most compatible with
mild to moderate chronic microangiopathic ischemia. No mass effect, midline shift, or extra axial collection.
The vascular flow voids at the skull base are unremarkable, as far as visualized.
The paranasal sinuses and mastoids are clear. Bilateral ocular lens implants.
Discharge disposition:
Home
Discharge Plan
-
Patient Disposition: Home (Routine Discharge)
Discharge Diagnosis/Procedures: Acute stroke, hypertension, hyperlipidemia, paroxysmal Atrial fibrillation
Diet: Regular
Activity: As tolerated
Instructions: High blood pressure in adults, Apixaban, Stroke (DC)
Referrals:
Lawanda Arredondo MD [Active, Neurology]
Clay Salinas DO [Family Provider, Family Practice]
Kayden Crews DO [Active, Cardiology]
Prescriptions:
New
atorvastatin 40 mg Tablet
40 mg PO QPM 30 Days Qty: 30 0RF
losartan 50 mg tablet
50 mg PO DAILY 30 Days Qty: 30 0RF
metoprolol succinate 25 mg Tablet Extended Release 24 Hr
12.5 mg PO DAILY 30 Days Qty: 15 0RF
Eliquis 5 mg Tablet
5 mg PO BID 30 Days Qty: 60 3RF
Continued
calcium carbonate 500 mg calcium (1,250 mg) Tablet
500 mg PO DAILY
cholecalciferol (vitamin D3) [Vitamin D3] 25 mcg (1,000 unit) Tablet
25 mcg PO BID
Discontinued
ginkgo biloba [Ginkoba] 40 mg Tablet
40 mg PO DAILY
ascorbic acid (vitamin C) [Vitamin C] 500 mg Tablet
500 mg PO DAILY
Visbiome 112.5 billion cell Capsule
1 cap PO DAILY
coQ10 (ubiquinol) 100 mg Capsule
100 mg PO DAILY
magnesium oxide 200 mg magnesium Tablet
200 mg PO BID
turmeric 400 mg Capsule
400 mg PO DAILY
garlic extract 400 mg Tablet
400 mg PO DAILY
cait root-herbal drugs 450 mg Capsule
450 cap PO DAILY
Beet Root Capsules
1 cap PO DAILY
Daily Greens Capsule
1 cap PO DAILY
Discharge Orders:
Discharge Patient (As Directed); Ordered 02/01/25
Ordered By: Geovanna Knight
Discharge Date and Time
Discharge Date/Time: 02/01/25 14:00
Print Language: ESTONIAN
[2025-02-01] MEDS: KCL 40 MEQ PO (11:14)
--- NOTE | 2025-02-01 12:18 | PTCARENOTE ---
pt d/c'd awaiting CM to sign off for eliquis
--- NOTE | 2025-02-01 13:58 | CM ---
F/U: OBED Dukes was asked by Hospitalist to try co-pay card for EliquINMAN. OBED Dukes tried with [facility] who said that the patient used her 1x 30 day free co-pay card before. Met with patient and , patient stated that she did not, used
Plavix in the past. Then OBED Dueks tried using the co-pay card via [employer] and the same response. Therefore, informed the patient/ that the co-pay at [facility] in [place] is $489 and the rest of her medications are at [facility].
was given the [employer] number to call the company directly to see if they have another co-pay card/ company to use. told OBED Dukes before leaving that the found out via a co-pay company he called that was given from company
[employer]liquis that after her knee surgery in 2021, she was prescribed this (and probably a CM at that hospital) completed the 30 day co-pay card then, but the patient never picked it up. Thus the reason why she cannot use a co-pay card now.
PLAN: Home No needs
== END 2025-02-01 14:00 | disposition home or self-care (01) | DRG 65 ==
LOC: IMU 12:09
PROVIDERS: Student in an Organized Health Care Education/Training Program; ADMITTING PHYSICIAN Internal Medicine; ATTENDING PHYSICIAN Internal Medicine; CONSULT PHYSICIAN Internal Medicine Cardiovascular Disease; CONSULT PHYSICIAN Psychiatry & Neurology Neurology; EMERGENCY PHYSICIAN Student in an Organized Health Care Education/Training Program; FAMILY PHYSICIAN Family Medicine
DX: I63.9 Cerebral infarction, unspecified (principal); I16.1 Hypertensive emergency; I48.0 Paroxysmal atrial fibrillation; Z79.02 Long term (current) use of antithrombotics/antiplatelets; Z79.82 Long term (current) use of aspirin; G35.D Multiple sclerosis, unspecified; M19.90 Unspecified osteoarthritis, unspecified site; Z79.01 Long term (current) use of anticoagulants; I10 Essential (primary) hypertension
CPT/HCPCS: 70450; 70496; 70498; 70551; 80048; 80053; 80061; 82607; 83036; 83735; 84443; 84484; 85025; 85027; 85730; 92523; 92610; 93005; 93306; 96374; 96375; 96376; 97116; 97129; 97162; 97166; 99291; Q9967